=== PATIENT | female | born 1975 | race Caucasian/White ===

== ENCOUNTER → 2020-09-26 14:19 | Outpatient (CLI) | payer BC, SELFPAY ==
--- NOTE | ~2020-09-26 | MM_ITS ---
EXAMINATION: MM diagnostic abraham BI w nan HISTORY: Breast pain TECHNIQUE: Additional 3-D tomosynthesis images of the breasts were performed and synthetic 2-D images were generated. CAD analysis was submitted and interpreted. COMPARISON: Comparison to multiple prior studies sequentially, with oldest reviewed study dated 07/13. BREAST PARENCHYMAL COMPOSITION: The breasts are extremely dense, which lowers the sensitivity of mamm ography FINDINGS: There are no suspicious masses, calcifications, architectural distortion to suggest maligna ncy. IMPRESSION: 1. No mammographic evidence for malignancy in either breast. 2. Routine yearly screening mammogram and regular clinical breast examination are recommended. BI-RADS Category 1: Negative Reviewed, dictated and finalized at location A. ERY OFFICE MANAGER IMPRESSION: 1. No mammographic evidence for malignancy in either breast. 2. Routine yearly screening mammogram and regular clinical breast examination a re recommended. BI-RADS Category 1: Negative
== END ==
PROVIDERS: PCP Internal Medicine; Visit Provider Obstetrics & Gynecology
DX: N64.4 Mastodynia (principal)
CPT/HCPCS: 77062; 77066; G0279

== ENCOUNTER 2021-02-01 12:30 | Outpatient (CLI) | payer BC, SELFPAY ==
--- NOTE | ~2021-02-01 | CT_ITS ---
EXAMINATION: CT abdomen pelvis wo con DATE: 02/01/2021 13:01 INDICATION: Left flank pain TECHNIQUE: Computed tomography (CT) of the abdomen and pelvis was performed without intravenous contr ast. The dose-length product (DLP) was 410.19 mGy-cm. Automated exposure control and iterative recons truction technique were employed. COMPARISON: 08/07/2018 FINDINGS: The lung bases are clear. The heart size is normal. The gallbladder is surgically absent. T here is mild enlargement of the common bile duct and central intrahepatic ducts which is likely due t o post cholecystectomy state. The liver, spleen, pancreas, and adrenal glands are normal. The kidneys are unremarkable. No stones are identified in the kidneys, ureters, or bladder. There is no hydronep hrosis or hydroureter. No pathologically enlarged abdominal or pelvic lymph nodes are identified. The re is no free intraperitoneal gas or evidence of bowel obstruction. There are phleboliths of the pelv is. IMPRESSION: 1. No CT correlate for the patient's symptoms. Reviewed, dictated and finalized at location A.
--- NOTE | ~2021-02-01 | XR_ITS ---
EXAMINATION: XR abdomen/kub 1V INDICATION: Left flank pain TECHNIQUE: Supine view of the abdomen is obtained. COMPARISON: 07/29/2015 FINDINGS: No urolithiasis is identified. There are phleboliths of the pelvis. The bowel gas pattern i s normal. Cholecystectomy clips are noted in the right upper quadrant. IMPRESSION: 1. No urolithiasis identified. Reviewed, dictated and finalized at location A.
== END 2021-02-01 12:31 ==
PROVIDERS: PCP Internal Medicine; Visit Provider Nurse Practitioner Adult Health
DX: R10.9 Unspecified abdominal pain (principal)
CPT/HCPCS: 74018; 74176

== ENCOUNTER 2021-04-27 09:44 | Emergency (ER) | payer OTHER, BC, SELFPAY ==
--- NOTE | ~2021-04-27 | XR_ITS ---
EXAMINATION: XR lumbar spine min 4V DATE: 04/27/2021 10:47 INDICATION: Low back pain TECHNIQUE: Anteroposterior, lateral, and bilateral oblique views of the lumbar spine, and cone-down l ateral view of the lumbosacral junction were obtained. COMPARISON: None. FINDINGS: There is no fracture, dislocation, or subluxation. The vertebral body heights, alignment, a nd intervertebral disc spaces are normal. Small degenerative osteophytes project from the anterior en dplates of multiple vertebral bodies. There is mild facet osteoarthritis of the lower lumbar spine. C holecystectomy clips are noted in the right upper quadrant. IMPRESSION: 1. Mild lumbar spondylosis without acute findings. Reviewed, dictated and finalized at location A.
[2021-04-27 09:54] VITALS: BP 166/84; PULSE 86; RESP 14; TEMP 37; O2SAT 100
[2021-04-27] MEDS: KETOROLAC (*BKC) 60 MG/2 ML VIAL IM (11:40)
--- NOTE | 2021-04-27 12:25 | ED.GENADULT ---
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 Patient denies falling herself. Patient states she feels a tightening and spasming sensation. Patient denies prior back injury. Patient denies any other injuries or concerns. Patient denies any renal insufficiency or diabetes. Related Data Allergies Allergy/AdvReac Type Severity Reaction Status Date / Time No Known Allergies Allergy Verified 04/27/21 10:38 Review of Systems Review of Systems: CONSTITUTIONAL: Denies fever, chills, or sweats. EYES: Denies visual changes, redness, or discharge. ENT: Denies rhinorrhea, congestion, sore throat, or otalgia. CARDIOVASCULAR: Denies chest pain, palpitations, or edema. RESPIRATORY: Denies cough or dyspnea. GASTROINTESTINAL: Denies abdominal pain, nausea, vomiting, or diarrhea. GENITOURINARY: Denies dysuria or hematuria. SKIN: Denies rash or itching. MUSCULOSKELETAL: Reports back pain denies joint pain, or myalgia. NEUROLOGIC: Denies headache, numbness, dizziness, or weakness. PSYCHIATRIC: Denies anxiety or depression. [facility] Family History Family History (System 06/24/19 @ 13:49 by Yaneth Arshad) Mother Hypertension Sibling Hypertension Social History Social History (System 06/24/19 @ 13:49 by Yaneth Arshad) Alcohol intake: never Exam Narrative: GENERAL: Well-appearing, well-nourished, and in no acute distress. HEAD: Normocephalic, atraumatic. EYES: PERRLA and EOMI. NECK: Supple. Range of motion intact. CHEST: Clear to auscultation. No respiratory distress. No wheezes rales or rhonchi HEART: Regular rate and rhythm. No murmur heard. Normal peripheral pulses. BACK: Muscle spasm palpated to right lumbar paraspinal muscles. Spasm and pain elicited with palpation of glue. There is no loss of bowel or bladder function or saddle paresthesia. Range of motion intact BUT flexion and rotation is painful. Gait is steady EXTREMITIES: Normal range of motion. No edema. SKIN: Warm, dry, no rash. NEURO: No focal deficits. Alert and oriented x3. PSYCH: Normal mood and affect. Course Vital Signs Vital signs: Vital Signs Temperature 98.6 F 04/27/21 09:54 Pulse Rate 86 04/27/21 09:54 Respiratory Rate 14 04/27/21 09:54 Blood Pressure 166/84 H 04/27/21 09:54 Pulse Oximetry 100 04/27/21 09:54 Temperature 98.6 F 04/27/21 09:54 Pulse Rate 86 04/27/21 09:54 Respiratory Rate 14 04/27/21 09:54 Blood Pressure 166/84 H 04/27/21 09:54 Pulse Oximetry 100 04/27/21 09:54 Medical Decision Making MDM Narrative Medical decision making narrative: No sign of fracture. Patient is having muscle spasming and radicular symptoms. Patient is instructed to avoid activities that trigger back pain over the next week and be reevaluated by her primary care occupational medicine. Patient will be prescribed naproxen and cyclobenzaprine. Vital Signs Vital Signs: Vital Signs Temperature 98.6 F 04/27/21 09:54 Pulse Rate 86 04/27/21 09:54 Respiratory Rate 14 04/27/21 09:54 Blood Pressure 166/84 H 04/27/21 09:54 Pulse Oximetry 100 04/27/21 09:54 Temperature 98.6 F 04/27/21 09:54 Pulse Rate 86 04/27/21 09:54 Respiratory Rate 14 04/27/21 09:54 Blood Pressure 166/84 H 04/27/21 09:54 Pulse Oximetry 100 04/27/21 09:54 Imaging Data Radiologist's impression: ITS Impressions Lumbar Spine X-Ray 04/27/21 10:54 IMPRESSION: 1. Mild lumbar spondylosis without acute findings. Discharge Plan Discharge Clinical Impression: St
== END 2021-04-27 13:05 | disposition home or self-care (01) ==
PROVIDERS: Emergency Provider Emergency Medicine; PCP Internal Medicine
DX: S39.012A Strain of muscle, fascia and tendon of lower back, initial encounter (principal); X50.9XXA Other and unspecified overexertion or strenuous movements or postures, initial encounter
CPT/HCPCS: 72110; 96372; 99283; J1885

== ENCOUNTER 2021-06-03 08:16 | Outpatient (CLI) | payer OTHER, BC, SELFPAY ==
--- NOTE | ~2021-06-03 | MR_ITS ---
EXAMINATION: MR lumbar spine wo con EXAM DATE: 06/03/2021 08:54 INDICATION: Acute bilateral low back pain w/ right side sciatic. TECHNIQUE: Multi-sequential, multiplanar MR images of the lumbar spine were obtained without contrast . Sagittal T1, T2, T2 fat saturation images. Axial T2 weighted images. There is no prior study for comparison. FINDINGS: There is cystic pelvic mass incompletely imaged, with a septation inside. Imaged portion me asures about 4 cm, could be a physiologic hemorrhagic cyst but a 6 week follow-up pelvic sonogram is recommended. The vertebral bodies are aligned in the AP dimension. Vertebral body and disc heights are well-mainta ined. The conus medullaris terminates at the L1/2 level and has normal signal intensity and morpholog y. There is a small vertebral body hemangioma within L4. There are no suspicious marrow signal abnorm alities. Paraspinal soft tissue is unremarkable. Level by level evaluation: T12-L1: Disc does not extend beyond the endplate margin. Facet arthropathy: None. Neural foraminal stenosis: No stenosis. Central canal stenosis: No stenosis. L1-L2: Disc does not extend beyond the endplate margin. Facet arthropathy: Mild. Neural foraminal stenosis: No stenosis. Central canal stenosis: No stenosis. L2-L3: Disc does not extend beyond the endplate margin. Facet arthropathy: Mild. Neural foraminal stenosis: No stenosis. Central canal stenosis: No stenosis. L3-L4: Disc does not extend beyond the endplate margin. Facet arthropathy: Mild. Neural foraminal stenosis: No stenosis. Central canal stenosis: No stenosis. L4-L5: There is a minimal diffuse disc bulge. Facet arthropathy: Mild to moderate. Neural foraminal stenosis: Mild right. Central canal stenosis: No stenosis. L5-S1: Disc does not extend beyond the endplate margin. Facet arthropathy: Mild. Neural foraminal stenosis: No stenosis. Central canal stenosis: No stenosis. IMPRESSION: 1. Mild lumbar spondylosis without stenosis. 2. Incidental pelvic cystic lesion probably physiologic or hemorrhagic cyst but consider 6 week foll ow-up pelvic sonogram. Reviewed, dictated and finalized at location B. IMPRESSION: 1. Mild lumbar spondylosis without stenosis. 2. Incidental pelvic cystic lesion probably physiologic or hemorrhagic cyst bu t consider 6 week follow-up pelvic sonogram.
== END 2021-06-03 08:17 | disposition home or self-care (01) ==
LOC: ANHIMG 08:26
PROVIDERS: PCP Internal Medicine; Visit Provider Internal Medicine
DX: M54.41 Lumbago with sciatica, right side (principal); M47.816 Spondylosis without myelopathy or radiculopathy, lumbar region; N94.89 Other specified conditions associated with female genital organs and menstrual cycle
CPT/HCPCS: 72148

== ENCOUNTER → 2021-07-24 11:58 | Outpatient (CLI) | payer BC, SELFPAY ==
--- NOTE | ~2021-07-24 | US_ITS ---
EXAMINATION: US pelvic complete w TV DATE: 07/24/2021 12:22 INDICATION: Unspecified ovarian cyst. Comparison:Ultrasound dated 10/08/2009 TECHNIQUE: Multiple transabdominal and endovaginal sonographic images of the pelvis performed. FINDINGS: The uterus measures 7.9 x 4.1 x 4.5 cm. There are nonspecific endometrial calcifications. T he endometrial complex measures 4 mm. The right ovary measures 1.6 x 1.5 x 1.5 cm and the left ovary measures 1.8 x 1.4 x 1.5 cm. There ar e small follicles in each ovary. Normal doppler signal in both ovaries. There is no free fluid in the pelvis. There are no abnormal masses seen on either side. IMPRESSION: 1. Nonspecific endometrial calcifications. Lungs, unremarkable pelvic ultrasound. Reviewed, dictated and finalized at location A. SERVICE WRITER IMPRESSION: 1. Nonspecific endometrial calcifications. Lungs, unremarkable pelvic ultrasoun d.
== END ==
PROVIDERS: PCP Internal Medicine; Visit Provider Internal Medicine
DX: N83.209 Unspecified ovarian cyst, unspecified side (principal)
CPT/HCPCS: 76830; 76856

== ENCOUNTER 2025-03-16 14:03 | Outpatient (CLI) | payer BC, SELFPAY ==
--- NOTE | ~2025-03-16 | MM_ITS ---
EXAMINATION: MM screening [facility] BI w nan INDICATION: Asymptomatic, referred for screening mammogram COMPARISON: None available TECHNIQUE: Digital Breast Tomosynthesis CC, MLO views of Both breasts were obtained with computer-ai ded detection to assist in interpretation of the study. FINDINGS: The breasts are heterogeneously dense, which may obscure small masses. There is an asymmetry seen on the MLO view in the Superior right breast at posterior depth in [place] re, there are no mammographic features of malignancy. IMPRESSION: 1. Right breast Asymmetry. 2. No evidence of malignancy in the Left breast. RECOMMENDATION: Right breast Diagnostic mammogram with true lateral, appropriate spot compression views and an ultras ound if needed. BI-RADS Category 0: Incomplete: Needs additional imaging evaluation. Reviewed, dictated and finalized at location B. IMPRESSION: 1. Right breast Asymmetry. 2. No evidence of malignancy in the Left breast. RECOMMENDATION: Right breast Diagnostic mammogram with true lateral, appropriate spot compressi on views and an ultrasound if needed. BI-RADS Category 0: Incomplete: Needs additional imaging evaluation.
== END 2025-03-16 14:04 | disposition home or self-care (01) ==
LOC: MICIMG 14:05
PROVIDERS: PCP Obstetrics & Gynecology; Visit Provider Internal Medicine
DX: Z12.31 Encounter for screening mammogram for malignant neoplasm of breast (principal); R92.8 Other abnormal and inconclusive findings on diagnostic imaging of breast
CPT/HCPCS: 77063; 77067

== ENCOUNTER 2025-04-15 13:04 | Outpatient (CLI) | payer BC, OTHER, SELFPAY ==
--- NOTE | ~2025-04-15 | MMUS_ITS ---
EXAMINATION: US breast RT limited, MM diagnostic abraham RT w nan HISTORY: Inconclusive mammogram. Asymmetry in the upper right breast TECHNIQUE: Additional imaging of the right breast was performed using full field digital mammography. Spot compression imaging of the right breast was obtained. 3-D tomosynthesis were also obtained and synthetic 2-D images were generated. CAD analysis was submitted and interpreted. High resolution right breast ultrasound was performed.] ] COMPARISON: Mammograms from 03/16/2025 and 09/26/2020 BREAST PARENCHYMAL COMPOSITION: The breasts are extremely dense, which lowers the sensitivity of mammography. FINDINGS: MAMMOGRAPHIC FINDINGS: Redemonstration of the asymmetry in the upper right breast, posterior depth, with a few probably benign associated calcifications. No convincing sonographic correlate.The finding is probably benign. ULTRASOUND: There is a 3 x 3 x 2 mm hypoechoic cyst versus solid mass in the right breast at the 2:00 position 1 cm from the nipple. The finding is wider than tall. Margins are partially circumscribed. No internal color Doppler flow. No posterior acoustic shadowing. The finding is probably benign. IMPRESSION/RECOMMENDATION: 1. Probably benign findings in the right breast. A diagnostic right breast mammogram and a diagnostic right breast ultrasound in 6 months is recommended. BIRADS 3-probably benign Reviewed, dictated and finalized at location Q. IMPRESSION/RECOMMENDATION: 1. Probably benign findings in the right breast. A diagnostic right breast mamm ogram and a diagnostic right breast ultrasound in 6 months is recommended. BIRADS 3-probably benign IMPRESSION/RECOMMENDATION: 1. Probably benign findings in the right breast. A diagnostic right breast mamm ogram and a diagnostic right breast ultrasound in 6 months is recommended. BIRADS 3-probably benign
== END 2025-04-15 13:05 | disposition home or self-care (01) ==
PROVIDERS: PCP Obstetrics & Gynecology; Visit Provider Obstetrics & Gynecology
DX: R92.8 Other abnormal and inconclusive findings on diagnostic imaging of breast (principal)
CPT/HCPCS: 76642; 77061; 77065; G0279